=== PATIENT | female | born 1990 | race Caucasian/White ===

== ENCOUNTER 2018-12-03 18:43 | Emergency (ER) | payer SELFPAY ==
[~2018-12-03] VITALS: Ht 165.1 cm; Wt 72.6 kg
--- NOTE | 2018-12-03 19:10 | NUR ---
URINE SPECIMEN COLLECTED AND SENT TO LAB.
[2018-12-03 19:17] LABS: APPEARANCE,URINE Slightly Cloudy (CLEAR); BILIRUBIN,URINE SMALL (NEGATIVE); BLOOD, URINE Negative Ery/uL (NEGATIVE); COLOR,URINE Dark (YELLOW); KETONES,URINE >=160 (NEGATIVE); LEUKOCYTE ESTERASE ,URINE Negative (NEGATIVE); NITRITE, URINE Negative (NEGATIVE); PH,URINE 5.5 (5.0-8.0); PROTEIN,URINE 100 mg/dl (NEGATIVE); UGLUCOSE Negative (NEGATIVE); UROBILINOGEN,URINE 0.2 EU/dL (0.2)
[2018-12-03 19:28] LABS: BACTERIA,URINE Moderate /HPF (None Seen); RBC,URINE 0-2 /HPF (0-2); SQUAMOUS EPITHELIAL CELL,UR Many /HPF (None Seen)
[2018-12-03 19:29] LABS: MUCUS,URINE Many /LPF (None Seen)
[2018-12-03] MEDS ORDERED: IV NS 0.9% 1,000 ML BAG IV ONE (19:30)
[2018-12-03] MEDS ORDERED: ONDANSETRON HCL/PF 4 MG/2 ML VIAL IVP ONE (19:30)
[2018-12-03] MEDS ORDERED: MECLIZINE HCL 25 MG TABLET PO ONE (19:30)
[2018-12-03] MEDS ORDERED: MECLIZINE HCL 12.5 MG TABLET ONE (19:32)
[2018-12-03] MEDS ORDERED: ONDANSETRON HCL/PF 4 MG/2 ML VIAL ONE (19:32)
--- NOTE | 2018-12-03 19:33 | NUR ---
IV LINE ESTABLISHED, LABS DRAWNED AND SENT TO LAB.
[2018-12-03 21:03] VITALS: BP 128/84
--- NOTE | 2018-12-03 21:03 | NUR ---
IV removed. Catheter intact and site benign. Pressure and 4x4 applied to site. No bleeding noted. Patient discharged to home in stable condition. Written and verbal after care instructions given. Patient verbalizes understanding of instruction.
== END 2018-12-03 21:05 | disposition home or self-care (01) ==
LOC: ER 18:49
DX: H81.10 Benign paroxysmal vertigo, unspecified ear (principal); R11.2 Nausea with vomiting, unspecified; F41.9 Anxiety disorder, unspecified; E03.9 Hypothyroidism, unspecified
CPT/HCPCS: 81001; 84703; 87086; 96361; 96374; 99283; J2405; J7030; J8597; 81000-TC